=== PATIENT | female | born 1960 | race Hispanic/Latino ===

== ENCOUNTER 2017-02-16 19:04 | Emergency (ER) | payer MEDICARE ==
[2017-02-16 19:26] VITALS: BP 156/78; PULSE 72; RESP 20; TEMP 97.9; O2SAT 98
[2017-02-16] MEDS ORDERED: Oxycodone/Acetaminophen 5/325 mg Tab PO STA (19:58)
[2017-02-16] MEDS ORDERED: Oxycodone/Acetaminophen 5/325 mg Tab ONE (20:00)
--- NOTE | 2017-02-16 20:27 | C.PDOC ---
History Of Present Illness 56 yr old female with PMHx of chronic back pain and has been taking narcotics for a long time, presents to the ER requesting prescription refill. Patient states she went to the a pharmacy she has been going to for years and was informed they are unable to fill the prescription, went to another pharmacy and was turned down. patient states then she went to go see her pain management doctor Dr. Buenrostro and was told they can't help her fnd a pharmacy and sent her to the ED. Patient denies fever, chest pain, SOB, weakness or numbness. Time Seen by Provider: 02/16/17 20:00 Chief Complaint (Nursing): Back Pain History Per: Patient History/Exam Limitations: no limitations Onset/Duration Of Symptoms: Days Past Medical History Reviewed: Historical Data, Nursing Documentation, Vital Signs Vital Signs: Last Vital Signs Temp 97.9 F 02/16/17 19:20 Pulse 72 02/16/17 19:20 Resp 20 02/16/17 19:20 BP 156/78 H 02/16/17 19:20 Pulse Ox 98 02/16/17 20:51 - Medical History PMH: Back Problems Family History: States: No Known Family Hx - Social History Hx Tobacco Use: Yes Hx Alcohol Use: No Hx Substance Use: No - Immunization History Hx Tetanus Toxoid Vaccination: No Hx Influenza Vaccination: No Hx Pneumococcal Vaccination: No Review Of Systems Except As Marked, All Systems Reviewed And Found Negative. Constitutional: Negative for: Fever Cardiovascular: Negative for: Chest Pain Respiratory: Negative for: Shortness of Breath Neurological: Negative for: Weakness, Numbness Physical Exam - Physical Exam Appears: Well, Non-toxic, No Acute Distress Skin: Warm, Dry, No Rash Head: Atraumatic, Normacephalic Oral Mucosa: Moist Neck: Normal, Normal ROM, Supple Chest: Symmetrical, No Tenderness Cardiovascular: Rhythm Regular, No Murmur Back: Other ((+) Mid upper and lower back, tender to palpation. ) Extremity: Normal ROM, No Swelling Neurological/Psych: Oriented x3, Normal Speech Gait: Steady ED Course And Treatment O2 Sat by Pulse Oximetry: 98 Progress Note: [facility] was checked, which showes the patient regularly fills out a Rx every 1-2 weeks at [facility]. Pharmacy was called and was informed the patient is no longer welcomed at the pharmacy for unclear reasons. Patient was also made aware. Patient was treated with 1 dose of pain medication and is advised to follow up with pain managment. Also advised to look around to find a new pharmacy that will fill her Rx. Medical Decision Making Medical Decision Making: PLAN: * Percocet PO Disposition Counseled Patient/Family Regarding: Diagnosis, Need For Followup - Disposition Referrals: [facility] [Outside] Victoria Buenrostro MD [Non-Staff] - Disposition: HOME/ ROUTINE Disposition Time: 20:35 Condition: STABLE Additional Instructions: Follow up with Dr Buenrostro tomorrow; call pharmacies to see where you can get prescriptions filled. Call [facility] for assistance. Instructions: Chronic Pain (ED) Forms: General Discharge Instructions Print Language: BARBADIAN - Clinical Impression Clinical Impression: Chronic back pain - PA / [employer] / Resident Statement MD/DO has reviewed & agrees with the documentation as recorded. - Scribe Statement The provider has reviewed the documentation as recorded by the Scribe Hollie Barboza All medical record entries made by the Scribe were at my direction and personally dictated by me. I have reviewed the chart and agree that the record accurately reflects my personal performance of the history, physical exam, medical decision making, and the department course for this patient. I have also personally directed, reviewed, and agree with the discharge instructions and disposition.
== END 2017-02-16 20:36 | disposition home or self-care (01) ==
LOC: C.ER 19:04
DX: G89.29 Other chronic pain (principal); M54.9 Dorsalgia, unspecified